=== PATIENT | male | born 1970 | race Caucasian/White ===

== ENCOUNTER 2022-09-06 11:13 | Emergency (ER) | payer BC, SELFPAY ==
[2022-09-06 11:29] VITALS: BP 128/83; PULSE 108; RESP 16; TEMP 36.1; O2SAT 98
--- NOTE | 2022-09-06 12:25 | ED.URI ---
HPI - URI/Sore Throat General Chief Complaint: Upper Respiratory Infection Stated Complaint: Sore Throat Source: patient Mode of arrival: ambulatory History of Present Illness HPI Narrative: This is a 52-year-old male that presented to our urgent care with complaints of having a dry throat along with a nonproductive cough and what he thinks might be possible throat swelling for 2 weeks. Patient has a history of bronchitis and notes that his symptoms is mimicking his previous symptoms of bronchitis. The patient denies SOB, CP, palpitation, extremity numbness, lightheadedness, dizziness, constipation, diarrhea, chills, or fever. Related Data Allergies Allergy/AdvReac Type Severity Reaction Status Date / Time No Known Allergies Allergy Verified 09/06/22 11:24 Review of Systems Review of Systems: A 14 organ system Review of Systems was performed and pertinent positives included in the HPI, otherwise remaining ROS is negative. Exam Narrative: GENERAL: This is a well-nourished, well-developed patient, in no apparent distress. HEAD: normocephalic, atraumatic. EYES: PERRL. Sclera clear/white. Vision is grossly intact. EARS: External ears normal, auditory canals clear and without drainage, TMs normal without perforation. Hearing grossly intact. NOSE: External nose normal with no obvious nasal discharge, nares without redness, no rhinorrhea. THROAT: Mucous membranes moist, posterior pharynx clear. NECK: Neck supple, non-tender without lymphadenopathy, masses or thyromegaly. CARDIOVASCULAR: Regular rate and rhythm without murmurs, gallops, or rubs. RESPIRATORY: Clear to auscultation. Breath sounds equal bilaterally. No wheezes, rales, or rhonchi. GASTROINTESTINAL: Abdomen soft, non-tender, nondistended. Bowel sounds are active. No hepato-splenomegaly, or palpable masses. No guarding. SKIN: warm, intact with no suspicious lesions or rash, good texture and turgor. NEURO: awake, alert, and oriented to person, place and time. There were no obvious focal neurologic abnormalities. EXTREMITIES: Normal range of motion. No edema. No calf tenderness. Course Course Emergency Course: Patient will discharge with a Z-Hi Level of Care: Express Care Visit Vital Signs Vital signs: Vital Signs Temperature 96.9 F L 09/06/22 11:29 Pulse Rate 108 H 09/06/22 11:29 Respiratory Rate 16 09/06/22 11:29 Blood Pressure 128/83 09/06/22 11:29 Pulse Oximetry 98 09/06/22 11:29 Oxygen Delivery Room Air 09/06/22 11:29 Temperature 96.9 F L 09/06/22 11:29 Pulse Rate 108 H 09/06/22 11:29 Respiratory Rate 16 09/06/22 11:29 Blood Pressure 128/83 09/06/22 11:29 Pulse Oximetry 98 09/06/22 11:29 Oxygen Delivery Room Air 09/06/22 11:29 MDM - URI/Sore Throat Differential Diagnosis Differential diagnosis: Likely upper respiratory infection, viral infection, bronchitis and influenza Discharge Plan Discharge Clinical Impression: Bronchitis Patient Disposition: Home, Self-Care Condition: Stable Instructions: Antibiotic Form, Acute Bronchitis (ED) Additional Instructions: Follow-up with your primary care physician in 1-2 weeks if your symptoms do not improve. Take all medication as prescribed. What are the symptoms of bronchitis? ? The most common symptoms of bronchitis are: ?A nagging cough that can last up to a few weeks ?Coughing up mucus that is clear, yellow, or green People with bronchitis do not usually get a fever. When should I call the doctor or nurse? ? Most people who have a cough that lasts longer than their other cold or flu symptoms do not need to see a doctor. But you should call your doctor or nurse if you have: ?A fever higher than 100.4?F (38?C) ?A cough that lasts longer than 10 days ?Chest pain when you cough, trouble breathing, or coughing up blood ?A barking cough that makes it hard to talk ?A cough and weight loss that you cannot explain Prescriptions: New azithromycin [Zit
== END 2022-09-06 12:26 | disposition home or self-care (01) ==
PROVIDERS: Emergency Provider Nurse Practitioner
DX: J40 Bronchitis, not specified as acute or chronic (principal)
CPT/HCPCS: 99203; G0463